=== PATIENT | female | born 2000 | race Two or more races ===

== ENCOUNTER 2023-09-02 07:46 | Emergency (ER) | payer BC, OTHER ==
[~2023-09-02] VITALS: Ht 154.9 cm; Wt 56.7 kg
[2023-09-02] MEDS ORDERED: LEXAPRO5 MG (07:49)
[2023-09-02] MEDS ORDERED: RINGERS SOLUTION,LACTATED 250 ML IV STA (08:53)
[2023-09-02] MEDS ORDERED: HYOSCYAMINE SULFATE 0.125 MG TAB.SUBL SL ONE (09:00)
[2023-09-02] MEDS ORDERED: ONDANSETRON HCL 2 MG/ML VIAL IV ONE (09:00)
[2023-09-02 09:20] LABS: HEMOGLOBIN 13.1 g/dL (12.0-15.00); MEAN CELL VOLUME 78.3 fL (80.00-100.00); MEAN CORPUSCULAR HEMOGLOBIN 25.6 pg (27.00-32.0); MEAN CORPUSCULAR HGB CONC 32.7 g/dl (32.0-36.0); PLATELET COUNT 191 K/uL (150-450); RED CELL DISTRIBUTION WIDTH 14.6 % (11.5-14.5)
[2023-09-02 10:02] LABS: CALCIUM 8.3 mg/dL (8.5-10.1); CREATININE SERUM 0.77 mg/dL (0.55-1.02); GFR 92.1; POTASSIUM 3.42 mEq/L (3.5-5.1)
[2023-09-02 12:18] LABS: URINE APPEARANCE Clear; URINE BILIRRUBIN Negative (NEGATIVE); URINE BLOOD Negative; URINE COLOR Yellow; URINE GLUCOSE Negative (NEGATIVE); URINE LEUKOCYTE Moderate; URINE NITRATE Negative; URINE PROTEIN Negative (NEGATIVE)
[2023-09-02 12:22] LABS: URINE BACTERIA 6666.2 uL (0.0-1933); URINE EPITHELIAL CELLS 30.1 uL (0.0-38.8); URINE RBC 5.3 uL (0.0-20.8); URINE WBC 141.4 uL (0.0-23.2)
== END 2023-09-02 14:23 | disposition home or self-care (01) ==
LOC: ER 07:47
PROVIDERS: Emergency Medicine; Surgery
DX: K29.70 Gastritis, unspecified, without bleeding (principal); R11.10 Vomiting, unspecified